=== PATIENT | female | born 1935 | race Native Hawaiian/Other Pacific Islander ===

== ENCOUNTER 2016-10-28 09:18 | Inpatient (IN) | payer OTHER ==
[~2016-10-28 09:18] MED LIST: A-HYDROCORT100 MG IJ; ACYCLOVIR800 MG OR; AMOX500T5 PO; BISACODYL10 MG RE; CARDIZEM60 MG PO; CELEXA20 MG PO; CELEXA40 MG PO; CLARITIN10 M1 PO; CODEINE/APAP1 TA1 PO; CULTURELL3 PO; DEXA4INJ21 INJ; DICL1GEL2 TOP; DIPHENHYDRAM25 MG OR; ENTERIC COATED325 MG PO; FENT25DI TD; FENT50DI TD; FLUT0.05 NAS; FURO40TA93 PO; GABA100C2 PO; HYDR4TAB12 PO; LEVAQUIN500 MG PO; LIDOPATCH TOP; METOPROLOL25 M1 PO; MICRO-K10 MEQ OR; MULTIVITAMIN PO; MYRBETRIQ50 MG PO; OMEP40CA PO; ONDA4TAB3 PO; PANT40TA PO; PERCOCET1 TA3 PO; POLY3350 PO; PRED10TA27 PO; REQUIP1 MG PO; TRAZ50TA36 PO; VIT C/ACEROL500 MG OR; ZINC10 MG MT
== END 2016-11-28 08:00 | disposition still patient (30) ==
LOC: PAVB 09:18
PROVIDERS: ADMIT Internal Medicine
DX: Z51.89 Encounter for other specified aftercare (principal)

== ENCOUNTER 2016-11-28 09:00 | Inpatient (IN) | payer OTHER | END 2016-12-29 09:35 | disposition still patient (30) | LOC: PAVB 09:00 | PROVIDERS: ADMIT Internal Medicine | DX: Z51.89 Encounter for other specified aftercare (principal) ==

== ENCOUNTER 2016-11-29 06:42 | Outpatient (CLI) | payer OTHER ==
[2016-11-29 08:09] LABS: PLATELET COUNT 100 K/uL (152-353)
== END 2016-11-29 19:18 | disposition home or self-care (01) ==
LOC: LAB 06:42
PROVIDERS: Internal Medicine
DX: I10 Essential (primary) hypertension (principal); Z79.899 Other long term (current) drug therapy
CPT/HCPCS: 36415; 80162; 85027

== ENCOUNTER 2016-12-10 11:12 | Outpatient (CLI) | payer OTHER ==
[2016-12-10 11:48] LABS: PLATELET COUNT 80 K/uL (152-353)
[2016-12-10 12:19] LABS: POTASSIUM 2.9 mmol/L (3.6-5.2)
== END 2016-12-10 13:00 | disposition home or self-care (01) ==
LOC: LAB 11:12
PROVIDERS: Internal Medicine
DX: D64.89 Other specified anemias (principal); N19 Unspecified kidney failure; K74.60 Unspecified cirrhosis of liver; R82.99 Other abnormal findings in urine
CPT/HCPCS: 80048; 81000; 82140; 85027; 87077; 87086; 87088; 87186

== ENCOUNTER 2016-12-17 04:27 | Outpatient (CLI) | payer OTHER | END 2016-12-17 20:45 | disposition home or self-care (01) | LOC: LAB 04:27 | DX: N19 Unspecified kidney failure (principal) | CPT/HCPCS: 82140 ==

== ENCOUNTER 2016-12-27 05:27 | Outpatient (CLI) | payer OTHER | END 2016-12-27 19:49 | disposition home or self-care (01) | LOC: LAB 05:27 | DX: N19 Unspecified kidney failure (principal) | CPT/HCPCS: 36415; 82140 ==

== ENCOUNTER 2016-12-29 10:31 | Inpatient (IN) | payer OTHER ==
[2017-01-18] MEDS ORDERED: LANOXIN 0.120.125 M1 PO (17:25)
[2017-01-18] MEDS ORDERED: DULO60CA2 PO (17:25)
[2017-01-18] MEDS ORDERED: GABA400C2 PO (17:26)
[2017-01-18] MEDS ORDERED: FURO40TA93 PO (17:26)
[2017-01-18] MEDS ORDERED: LACTSYP31 PO (17:27)
[2017-01-18] MEDS ORDERED: HEPARIN LOC IV (17:27)
[2017-01-18] MEDS ORDERED: SPIR50TA8 PO (17:28)
[2017-01-18] MEDS ORDERED: PERCOCET1 TA3 PO ×2 (17:29→17:34)
[2017-01-18] MEDS ORDERED: CLON0.5T36 PO (17:29)
[2017-01-18] MEDS ORDERED: POTA20TA4 PO (17:30)
[2017-01-18] MEDS ORDERED: MAG OXIDE400 MG PO (17:30)
[2017-01-18] MEDS ORDERED: MEROPENEM1 GM IVPB (17:31)
[2017-01-18] MEDS ORDERED: RISP0.5T2 PO (17:32)
[2017-01-18] MEDS ORDERED: ALBUSOL IN (17:33)
[2017-01-18] MEDS ORDERED: LORA0.5T17 PO (17:34)
[2017-01-18] MEDS ORDERED: LAXATIVE1 TAB PO (17:36)
[2017-01-18] MEDS ORDERED: DEXTLIQ63 PO (17:36)
[2017-01-18] MEDS ORDERED: HALO5INJ3 IM (17:37)
[2017-01-19] MEDS ORDERED: [UNRECOGNIZED DRUG - OTHER] XX (00:17)
[2017-01-19] MEDS ORDERED: DENO60SO SC (02:01)
[2017-01-19] MEDS ORDERED: METO50TA27 PO (02:19)
== END 2017-01-26 09:38 | disposition still patient (30) ==
LOC: PAVB 10:31
PROVIDERS: ADMIT Internal Medicine
DX: Z51.89 Encounter for other specified aftercare (principal)

== ENCOUNTER 2016-12-31 06:57 | Outpatient (CLI) | payer OTHER ==
[2016-12-31 07:12] LABS: PLATELET COUNT 102 K/uL (152-353)
== END 2016-12-31 07:57 | disposition home or self-care (01) ==
LOC: LAB 06:57
PROVIDERS: Internal Medicine
DX: I10 Essential (primary) hypertension (principal); D64.89 Other specified anemias; E87.6 Hypokalemia; D69.6 Thrombocytopenia, unspecified
CPT/HCPCS: 36415; 80053; 82607; 82728; 83540; 83735; 85027

== ENCOUNTER 2017-01-12 04:48 | Outpatient (CLI) | payer OTHER | END 2017-01-12 05:48 | disposition home or self-care (01) | LOC: CT 04:48 → LAB 04:48 | DX: R41.82 Altered mental status, unspecified (principal); N19 Unspecified kidney failure | CPT/HCPCS: 36415; 81000; 82140; 87077; 87086; 87088; 87186 ==

== ENCOUNTER 2017-01-14 19:55 | Outpatient (CLI) | payer OTHER ==
[~2017-01-14] VITALS: Ht 162.6 cm; Wt 63.0 kg
== END 2017-01-14 21:40 | disposition home or self-care (01) ==
LOC: INF 19:55
DX: N39.0 Urinary tract infection, site not specified (principal)
CPT/HCPCS: 96365; J2185

== ENCOUNTER 2017-01-15 09:04 | Outpatient (CLI) | payer OTHER ==
[~2017-01-15] VITALS: Ht 162.6 cm; Wt 63.0 kg
[2017-01-15 09:25] VITALS: BP 111/74; TEMP 98
== END 2017-01-15 19:07 | disposition home or self-care (01) ==
LOC: INF 09:04
DX: N39.0 Urinary tract infection, site not specified (principal)
CPT/HCPCS: 96365; 96366; J2185

== ENCOUNTER 2017-01-16 11:01 | Outpatient (CLI) | payer OTHER ==
[~2017-01-16] VITALS: Ht 162.6 cm; Wt 63.0 kg
[2017-01-16 10:45] VITALS: BP 117/62; TEMP 97.4
== END 2017-01-16 19:49 | disposition home or self-care (01) ==
LOC: INF 11:01
DX: N39.0 Urinary tract infection, site not specified (principal)
CPT/HCPCS: 96365; 96366; J2185

== ENCOUNTER 2017-01-17 02:30 | Outpatient (CLI) | payer OTHER ==
[~2017-01-17] VITALS: Ht 162.6 cm; Wt 63.0 kg
[2017-01-18] MEDS ORDERED: LANOXIN 0.120.125 M1 PO (17:25)
[2017-01-18] MEDS ORDERED: DULO60CA2 PO (17:25)
[2017-01-18] MEDS ORDERED: GABA400C2 PO (17:26)
[2017-01-18] MEDS ORDERED: FURO40TA93 PO (17:26)
[2017-01-18] MEDS ORDERED: HEPARIN LOC IV (17:27)
[2017-01-18] MEDS ORDERED: LACTSYP31 PO (17:27)
[2017-01-18] MEDS ORDERED: SPIR50TA8 PO (17:28)
[2017-01-18] MEDS ORDERED: PERCOCET1 TA3 PO ×2 (17:29→17:34)
[2017-01-18] MEDS ORDERED: CLON0.5T36 PO (17:29)
[2017-01-18] MEDS ORDERED: MAG OXIDE400 MG PO (17:30)
[2017-01-18] MEDS ORDERED: POTA20TA4 PO (17:30)
[2017-01-18] MEDS ORDERED: MEROPENEM1 GM IVPB (17:31)
[2017-01-18] MEDS ORDERED: RISP0.5T2 PO (17:32)
[2017-01-18] MEDS ORDERED: ALBUSOL IN (17:33)
[2017-01-18] MEDS ORDERED: LORA0.5T17 PO (17:34)
[2017-01-18] MEDS ORDERED: LAXATIVE1 TAB PO (17:36)
[2017-01-18] MEDS ORDERED: DEXTLIQ63 PO (17:36)
[2017-01-18] MEDS ORDERED: HALO5INJ3 IM (17:37)
== END 2017-01-17 20:09 | disposition home or self-care (01) ==
LOC: LAB 02:30 → INF 02:30
DX: N39.0 Urinary tract infection, site not specified (principal); Z51.81 Encounter for therapeutic drug level monitoring
CPT/HCPCS: 36415; 83735; 96365; 96366; J2185

== ENCOUNTER 2017-01-17 10:27 | Emergency (ER) | payer OTHER ==
[~2017-01-17] VITALS: Ht 162.6 cm; Wt 63.3 kg
[2017-01-17 10:38] VITALS: TEMP 98
[2017-01-17 11:22] LABS: POTASSIUM 4.6 mmol/L (3.6-5.2); SODIUM 140 mmol/L (136-145)
[2017-01-17 11:25] LABS: PLATELET COUNT 102 K/uL (152-353)
[2017-01-17 11:36] LABS: PARTIAL THROMBOPLASTIN TIME 32.3 SECONDS (24.5-33.6)
[2017-01-17 14:07] VITALS: BP 96/53
[2017-01-18] MEDS ORDERED: DULO60CA2 PO (17:25)
[2017-01-18] MEDS ORDERED: LANOXIN 0.120.125 M1 PO (17:25)
[2017-01-18] MEDS ORDERED: GABA400C2 PO (17:26)
[2017-01-18] MEDS ORDERED: FURO40TA93 PO (17:26)
[2017-01-18] MEDS ORDERED: HEPARIN LOC IV (17:27)
[2017-01-18] MEDS ORDERED: LACTSYP31 PO (17:27)
[2017-01-18] MEDS ORDERED: SPIR50TA8 PO (17:28)
[2017-01-18] MEDS ORDERED: PERCOCET1 TA3 PO ×2 (17:29→17:34)
[2017-01-18] MEDS ORDERED: CLON0.5T36 PO (17:29)
[2017-01-18] MEDS ORDERED: MAG OXIDE400 MG PO (17:30)
[2017-01-18] MEDS ORDERED: POTA20TA4 PO (17:30)
[2017-01-18] MEDS ORDERED: MEROPENEM1 GM IVPB (17:31)
[2017-01-18] MEDS ORDERED: RISP0.5T2 PO (17:32)
[2017-01-18] MEDS ORDERED: ALBUSOL IN (17:33)
[2017-01-18] MEDS ORDERED: LORA0.5T17 PO (17:34)
[2017-01-18] MEDS ORDERED: DEXTLIQ63 PO (17:36)
[2017-01-18] MEDS ORDERED: LAXATIVE1 TAB PO (17:36)
[2017-01-18] MEDS ORDERED: HALO5INJ3 IM (17:37)
== END 2017-01-17 14:18 | disposition home or self-care (01) ==
LOC: ED 10:27
PROVIDERS: Emergency Medicine
DX: I47.1 Supraventricular tachycardia (principal); F41.8 Other specified anxiety disorders; R07.89 Other chest pain; I48.91 Unspecified atrial fibrillation; N39.0 Urinary tract infection, site not specified; Z51.81 Encounter for therapeutic drug level monitoring
CPT/HCPCS: 36415; 80053; 80162; 82550; 83735; 83880; 84484; 85027; 85610; 85730; 93005; 96365; 96366; 96374; 96375; 96376; 99284; J0150; J0153; J2060; J2185; J3490

== ENCOUNTER 2017-01-18 09:07 | Outpatient (CLI) | payer OTHER ==
[~2017-01-18] VITALS: Ht 162.6 cm; Wt 63.0 kg
[2017-01-18 08:55] VITALS: BP 100/56; TEMP 97.7
[2017-01-18 10:05] VITALS: BP 101/64; TEMP 97.7
[2017-01-18] MEDS ORDERED: DULO60CA2 PO (17:25)
[2017-01-18] MEDS ORDERED: LANOXIN 0.120.125 M1 PO (17:25)
[2017-01-18] MEDS ORDERED: FURO40TA93 PO (17:26)
[2017-01-18] MEDS ORDERED: GABA400C2 PO (17:26)
[2017-01-18] MEDS ORDERED: HEPARIN LOC IV (17:27)
[2017-01-18] MEDS ORDERED: LACTSYP31 PO (17:27)
[2017-01-18] MEDS ORDERED: SPIR50TA8 PO (17:28)
[2017-01-18] MEDS ORDERED: PERCOCET1 TA3 PO ×2 (17:29→17:34)
[2017-01-18] MEDS ORDERED: CLON0.5T36 PO (17:29)
[2017-01-18] MEDS ORDERED: POTA20TA4 PO (17:30)
[2017-01-18] MEDS ORDERED: MAG OXIDE400 MG PO (17:30)
[2017-01-18] MEDS ORDERED: MEROPENEM1 GM IVPB (17:31)
[2017-01-18] MEDS ORDERED: RISP0.5T2 PO (17:32)
[2017-01-18] MEDS ORDERED: ALBUSOL IN (17:33)
[2017-01-18] MEDS ORDERED: LORA0.5T17 PO (17:34)
[2017-01-18] MEDS ORDERED: DEXTLIQ63 PO (17:36)
[2017-01-18] MEDS ORDERED: LAXATIVE1 TAB PO (17:36)
[2017-01-18] MEDS ORDERED: HALO5INJ3 IM (17:37)
[2017-01-19] MEDS ORDERED: [UNRECOGNIZED DRUG - OTHER] XX (00:17)
[2017-01-19] MEDS ORDERED: DENO60SO SC (02:01)
[2017-01-19] MEDS ORDERED: METO50TA27 PO (02:19)
== END 2017-01-18 23:39 | disposition home or self-care (01) ==
LOC: INF 09:07
DX: N39.0 Urinary tract infection, site not specified (principal)
CPT/HCPCS: 96365; J2185

== ENCOUNTER 2017-01-26 10:15 | Inpatient (IN) | payer OTHER ==
[~2017-01-26 10:15] MED LIST changes: +ALBUSOL IN; +CLON0.5T36 PO; +DENO60SO SC; +DEXTLIQ63 PO; +DULO60CA2 PO; +GABA400C2 PO; +HALO5INJ3 IM; +HEPARIN LOC IV; +LACTSYP31 PO; +LANOXIN 0.120.125 M1 PO; +LAXATIVE1 TAB PO; +LORA0.5T17 PO; +MAG OXIDE400 MG PO; +MEROPENEM1 GM IVPB; +METO50TA27 PO; +POTA20TA4 PO; +RISP0.5T2 PO; +SPIR50TA8 PO; +[UNRECOGNIZED DRUG - OTHER] XX
== END 2017-01-31 14:12 | disposition expired ==
LOC: PAVB 10:15
PROVIDERS: ADMIT Internal Medicine
DX: Z51.89 Encounter for other specified aftercare (principal)

== ENCOUNTER 2017-01-27 15:27 | Outpatient (CLI) | payer OTHER ==
[2017-01-27 15:50] LABS: PLATELET COUNT 122 K/uL (152-353)
[2017-01-27 16:23] LABS: POTASSIUM 4.8 mmol/L (3.6-5.2)
== END 2017-01-27 20:01 | disposition home or self-care (01) ==
LOC: RAD 15:27 → LAB 15:27 → RAD 20:01
PROVIDERS: Internal Medicine
DX: I50.9 Heart failure, unspecified (principal)
CPT/HCPCS: 80048; 83880; 85027